=== PATIENT | female | born 1950 | race Caucasian/White ===

== ENCOUNTER 2024-05-13 14:01 | Emergency (ER) | payer MEDICARE, OTHER ==
[~2024-05-13] VITALS: Ht 170.2 cm; Wt 71.8 kg
[2024-05-13 14:04] VITALS: TEMP 97.8
[2024-05-13 15:10] VITALS: BP 129/68; PULSE 63
== END 2024-05-13 15:20 | disposition home or self-care (01) ==
LOC: COL.ER 14:01
DX: S01.01XA Laceration without foreign body of scalp, initial encounter (principal); Z23 Encounter for immunization; Z79.82 Long term (current) use of aspirin; W10.9XXA Fall (on) (from) unspecified stairs and steps, initial encounter; W22.09XA Striking against other stationary object, initial encounter; Y93.01 Activity, walking, marching and hiking